=== PATIENT | male | born 1970 | race Asian ===

== ENCOUNTER 2019-09-20 12:42 | Outpatient (CLI) | payer OTHER ==
[~2019-09-20 12:42] MED LIST: REGADENOSON 0.4 MG/5 ML SYRINGE ONE
== END 2019-09-20 23:59 | disposition home or self-care (01) ==
LOC: CFH 12:42
PROVIDERS: ATTEND Internal Medicine
DX: R07.9 Chest pain, unspecified (principal); I99.8 Other disorder of circulatory system
CPT/HCPCS: 78452; 93017; A9502; J2785

== ENCOUNTER 2019-09-29 11:47 | Observation (INO) | payer OTHER ==
[~2019-09-29] VITALS: Ht 175.3 cm; Wt 100.0 kg
[2019-09-29] MEDS ORDERED: GLIP10TA13 PO (13:39)
[2019-09-29] MEDS ORDERED: METF500T17 PO (13:39)
[2019-09-29] MEDS ORDERED: INSU100I11 SC (13:39)
[2019-09-29] MEDS ORDERED: ASPI-515 PO (13:39)
[2019-09-29] MEDS ORDERED: FENO67CA PO (13:39)
[2019-09-29] MEDS ORDERED: ATOR40TA PO (13:39)
[2019-09-29] MEDS ORDERED: VITA200C7 PO (13:39)
[2019-09-29] MEDS ORDERED: ABAC1TAB14 PEG (13:39)
[2019-09-29] MEDS ORDERED: PIOG15TA66 PO (13:39)
[2019-09-29] MEDS ORDERED: CHOL400C PO (13:39)
[2019-09-29] MEDS ORDERED: ICOS1CAP PO (13:39)
[2019-09-29] MEDS ORDERED: MIDAZOLAM 1 MG/ML, 5ML ONE (14:23)
[2019-09-29] MEDS ORDERED: FENTANYL PF 100 MCG/2ML ONE (14:23)
[2019-09-29] MEDS ORDERED: VERAPAMIL 2.5 MG/ML, 2ML ONE (14:24)
[2019-09-29] MEDS ORDERED: LIDOCAINE-MPF 1%, 5ML ONE (14:24)
[2019-09-29] MEDS ORDERED: HEPARIN 1,000 UNITS/ML, 10ML ONE (14:24)
[2019-09-29] MEDS ORDERED: TICAGRELOR 90 MG TABLET ONE (14:24)
[2019-09-29] MEDS ORDERED: BIVALIRUDIN 250 MG ONE (14:24)
[2019-09-29] MEDS: SODIUM CHLORIDE 0.9% 1,000 ML IV SCH ×2 (15:56→23:56)
[2019-09-29] MEDS ORDERED: BISACODYL 5 MG EC TABLET PO PRN (16:00)
[2019-09-29] MEDS ORDERED: ACETAMINOPHEN 325 MG TABLET PO PRN (16:00)
[2019-09-29] MEDS ORDERED: DOLUTEGRAVIR PEG SCH (16:00)
[2019-09-29] MEDS ORDERED: ABACAVIR PEG SCH (16:00)
[2019-09-29] MEDS ORDERED: ZOLPIDEM 5MG TABLET PO PRN (16:00)
[2019-09-29] MEDS ORDERED: LAMIVUDI PEG SCH (16:00)
[2019-09-29 16:21] VITALS: BP 132/82
[2019-09-29 19:56] VITALS: BP 133/75
[2019-09-29] MEDS: VITAMIN E 400 UNITS CAPSULE PO SCH (21:00)
[2019-09-29] MEDS: ICOSAPENT ETHYL PO SCH (21:00)
[2019-09-29] MEDS ORDERED: ATORVASTATIN 40 MG TABLET PO SCH (21:00)
[2019-09-29] MEDS ORDERED: metFORMIN 500 MG TABLET PO SCH (21:00)
[2019-09-29] MEDS: INSULIN LISPRO 100 UNITS/ML, PEN SQ-INSULIN SCH (21:00)
[2019-09-29] MEDS: TICAGRELOR 90 MG TABLET PO SCH (21:10)
[2019-09-30 01:40] VITALS: BP 119/80
[2019-09-30 04:33] LABS: ANION GAP 6 mmol/L (5-15); CALCIUM 9.3 mg/dL (8.5-10.1); CHLORIDE 105 mmol/L (98-107); CREATININE 1.63 mg/dL (0.7-1.3)
[2019-09-30] MEDS: SODIUM CHLORIDE 0.9% 1,000 ML IV SCH (07:56)
[2019-09-30 08:28] VITALS: BP 132/81
[2019-09-30] MEDS: INSULIN LISPRO 100 UNITS/ML, PEN SQ-INSULIN SCH (08:45)
[2019-09-30] MEDS: TICAGRELOR 90 MG TABLET PO SCH (08:45)
[2019-09-30] MEDS: VITAMIN E 400 UNITS CAPSULE PO SCH (08:45)
[2019-09-30] MEDS: ICOSAPENT ETHYL PO SCH (08:46)
[2019-09-30] MEDS ORDERED: DOLUTEGRAVIR PEG SCH (09:00)
[2019-09-30] MEDS ORDERED: FENOFIBRATE 145 MG TABLET PO SCH (09:00)
[2019-09-30] MEDS ORDERED: PIOGLITAZONE 15 MG TABLET PO SCH (09:00)
[2019-09-30] MEDS ORDERED: ABACAVIR PEG SCH (09:00)
[2019-09-30] MEDS ORDERED: CHOLECALCIFEROL 400 UNITS TABLET PO SCH (09:00)
[2019-09-30] MEDS ORDERED: ASPIRIN 81 MG TABLET EC PO SCH (09:00)
[2019-09-30] MEDS ORDERED: metFORMIN 500 MG TABLET PO SCH (09:00)
[2019-09-30] MEDS ORDERED: LAMIVUDINE PEG SCH (09:00)
[2019-09-30] MEDS ORDERED: TICA90TA PO (10:44)
[2019-10-01] MEDS ORDERED: ASPIRIN 81 MG TABLET EC PO SCH (09:00)
== END 2019-09-30 12:15 | disposition home or self-care (01) ==
LOC: CACL 11:47 → ORIP 15:56 → 5SO 16:50 → DCLOUNGE 09-30 12:02
PROVIDERS: ADMIT Internal Medicine Cardiovascular Disease; ATTEND Internal Medicine Cardiovascular Disease
DX: I25.119 Atherosclerotic heart disease of native coronary artery with unspecified angina pectoris (principal); I10 Essential (primary) hypertension; E78.2 Mixed hyperlipidemia; E11.9 Type 2 diabetes mellitus without complications; R07.89 Other chest pain; Z79.82 Long term (current) use of aspirin; Z79.899 Other long term (current) drug therapy
CPT/HCPCS: 36415; 80048; 85014; 85018; 93458; 96372; 99156; 99157; C1725; C1769; C1874; C1887; C1894; C9600; G0378; J0583; J1644; J1815; J2250; J3010; Q9967

== ENCOUNTER → 2019-10-21 | Outpatient (CLI) | payer OTHER ==
[~2019-10-21] MED LIST changes: +ABAC1TAB14 PEG; +ASPI-515 PO; +ATOR40TA PO; +CHOL400C PO; +FENO67CA PO; +GLIP10TA13 PO; +ICOS1CAP PO; +INSU100I11 SC; +METF500T17 PO; +PIOG15TA66 PO; -REGADENOSON 0.4 MG/5 ML SYRINGE ONE; +TICA90TA PO; +VITA200C7 PO
== END | disposition home or self-care (01) ==
LOC: CFH 08:51
PROVIDERS: ATTEND Registered Nurse
DX: I05.1 Rheumatic mitral insufficiency (principal); I10 Essential (primary) hypertension
CPT/HCPCS: 93306